=== PATIENT | female | born 1950 | race Caucasian/White ===

== ENCOUNTER 2022-04-11 17:15 | Emergency (ER) | payer OTHER, MEDICARE ==
[~2022-04-11] VITALS: Ht 152.4 cm; Wt 73.9 kg
== END 2022-04-11 18:33 | disposition home or self-care (01) ==
LOC: ED 17:15
DX: S01.81XA Laceration without foreign body of other part of head, initial encounter (principal); W01.10XA Fall on same level from slipping, tripping and stumbling with subsequent striking against unspecified object, initial encounter; J44.9 Chronic obstructive pulmonary disease, unspecified; I10 Essential (primary) hypertension; E03.9 Hypothyroidism, unspecified; Z88.1 Allergy status to other antibiotic agents
CPT/HCPCS: 70450; 99283-25